=== PATIENT | male | born 1970 | race Caucasian/White ===

== ENCOUNTER → 2021-03-23 | Outpatient (CLI) | payer BC ==
[~2021-03-23] MED LIST: diphenhydrAMINE 50 MG CAP PO STA
[2021-03-23 15:20] VITALS: RESP 18
[2021-03-23 15:23] VITALS: BP 153/98; PULSE 98
--- NOTE | 2021-03-23 15:27 | CT ---
EXAMINATION TYPE: CT urogram wo/w con DATE OF EXAM: 03/23/2021 COMPARISON: None HISTORY: RLQ pain CT DLP: 2592 mGycm CONTRAST: Performed and with IV Contrast, patient injected with 100 mL of Isovue 300. CT Urography was performed with unenhanced followed by enhanced images of the kidneys, ureters and ur inary bladder. Delayed images were obtained. 3d reconstruction was performed at a separate work sta tion. FINDINGS: KIDNEYS/BLADDER: No hydronephrosis. Nonobstructing calculus left kidney measuring 3 mm mid to upper pole. No additional calculi noted. Nonspecific 9 mm lesion lower pole left kidney may reflect a small cyst although is too small to characterize. Urinary bladder grossly unremarkable. LUNG BASES-: No visible nodule. No infiltrate. LIVER/GB: No calcified gallstones. No space occupying hepatic lesion. Biliary tree is of normal ca liber. PANCREAS: No inflammation. No distinct mass. SPLEEN: No splenic enlargement. No lesion seen. ADRENALS: No nodule. No thickening. BOWEL: Normal appendix. Normal bowel caliber. No inflammation. GENITAL ORGANS: No gross abnormality. LYMPH NODES: No greater than 1cm abdominal or pelvic lymph nodes are appreciated. AORTA: No significant abnormality. OSSEOUS STRUCTURES: No significant abnormality is seen. OTHER: No significant additional abnormality is seen. IMPRESSION: 1. Nonobstructing calculus left kidney measuring 3 mm mid to upper pole. No additional calculi noted. 2.Nonspecific 9 mm lesion lower pole left kidney may reflect a small cyst although is too small to ch aracterize.
== END | disposition home or self-care (01) ==
LOC: RADCTMAIN 13:48
PROVIDERS: ATTEND Family Medicine Addiction Medicine
DX: N20.0 Calculus of kidney (principal); N28.9 Disorder of kidney and ureter, unspecified
CPT/HCPCS: 74178; 74400; Q9967